=== PATIENT | female | born 1980 | race Caucasian/White ===

== ENCOUNTER 2018-03-10 06:50 | Inpatient (IN) | payer MEDICARE ==
[2018-03-08 14:23] LABS: BASOPHILS 0.3 % (0-2); EOSINOPHILS 4.3 % (0-7); HEMATOCRIT 38.8 % (36.0-48.0); HEMOGLOBIN 12.7 g/dL (12-16); IMMATURE GRANULOCYTES 0.4 % (0-5); LYMPHOCYTES 41.2 % (15-50); MCH 28.2 pg (26.0-34.0); MCHC 32.7 g/dL (31.0-37.0); MCV 86.2 fL (80.0-100.0); MEAN PLATELET VOLUME 9.7 fL (7.4-10.4); MONOCYTES 5.3 % (2-11); NEUTROPHILS 48.5 % (40-80); RDW 13.7 % (11.5-14.5); WBC 6.9 10x3/uL (4.8-10.8)
[2018-03-08 14:30] LABS: PLATELET COUNT 273 10x3/uL (130-400)
[2018-03-08 14:34] LABS: CALC OSMOLALITY 273 mosm/kg (275-300); CALCIUM 8.5 mg/dL (8.5-10.1); CARBON DIOXIDE 24.8 mmol/L (21.0-32.0); CHLORIDE - SERUM 104 mmol/L (98-107); CREATININE - SERUM 0.7 mg/dL (0.6-1.3); GLUCOSE 107 mg/dL (74-106); POTASSIUM - SERUM 3.9 mmol/L (3.5-5.1); SODIUM 138 mmol/L (136-145); UREA NITROGEN 7 mg/dL (7-18); eGFR NON AFRICAN AMERICAN > 90 mL/min (90-120)
[2018-03-10] VITALS (14 sets, daily range): BP systolic 88–146; BP diastolic 53–89; BMI 39.0
[~2018-03-10] VITALS: Ht 160 cm; Wt 100.0 kg
[~2018-03-10 06:50] MED LIST: GLYBURIDE2.5 MG PO; MOTRIN600 MG PO; PERCOCET 5/3251 TA1 PO; PRENATAL COMPLE1 TAB PO
[2018-03-10 07:18] LABS: HCG URINE NEGATIVE (NEGATIVE)
[2018-03-10 15:30] LABS: BASOPHILS 0.1 % (0-2); EOSINOPHILS 0 % (0-7); HEMOGLOBIN 13.2 g/dL (12-16); IMMATURE GRANULOCYTES 0.2 % (0-5); LYMPHOCYTES 5.9 % (15-50); MCH 28.6 pg (26.0-34.0); MCV 86.8 fL (80.0-100.0); MEAN PLATELET VOLUME 9.5 fL (7.4-10.4); MONOCYTES 2.8 % (2-11); PLATELET COUNT 278 10x3/uL (130-400); RBC 4.61 10x6/uL (4.00-5.40); RDW 13.6 % (11.5-14.5); WBC 16.6 10x3/uL (4.8-10.8)
[2018-03-10 15:38] LABS: CALC OSMOLALITY 270 mosm/kg (275-300); CALCIUM 8.4 mg/dL (8.5-10.1); CARBON DIOXIDE 27.2 mmol/L (21.0-32.0); CHLORIDE - SERUM 101 mmol/L (98-107); CREATININE - SERUM 0.7 mg/dL (0.6-1.3); POTASSIUM - SERUM 4.5 mmol/L (3.5-5.1); SODIUM 135 mmol/L (136-145); UREA NITROGEN 8 mg/dL (7-18); eGFR NON AFRICAN AMERICAN > 90 mL/min (90-120)
[2018-03-10 15:39] LABS: GLUCOSE 158 mg/dL (74-106)
[2018-03-11 00:40] VITALS: BP 98/61
[2018-03-11 06:35] LABS: BASOPHILS 0.1 % (0-2); EOSINOPHILS 0.9 % (0-7); HEMATOCRIT 37.3 % (36.0-48.0); HEMOGLOBIN 12.2 g/dL (12-16); IMMATURE GRANULOCYTES 0.3 % (0-5); LYMPHOCYTES 19.3 % (15-50); MCH 28.4 pg (26.0-34.0); MCHC 32.7 g/dL (31.0-37.0); MCV 86.7 fL (80.0-100.0); MEAN PLATELET VOLUME 9.8 fL (7.4-10.4); MONOCYTES 5.3 % (2-11); NEUTROPHILS 74.1 % (40-80); PLATELET COUNT 266 10x3/uL (130-400); RDW 13.7 % (11.5-14.5); WBC 12.8 10x3/uL (4.8-10.8)
[2018-03-11 06:45] LABS: CALC OSMOLALITY 278 mosm/kg (275-300); CALCIUM 8.7 mg/dL (8.5-10.1); CARBON DIOXIDE 25.9 mmol/L (21.0-32.0); CHLORIDE - SERUM 103 mmol/L (98-107); CREATININE - SERUM 0.8 mg/dL (0.6-1.3); GLUCOSE 147 mg/dL (74-106); POTASSIUM - SERUM 3.9 mmol/L (3.5-5.1); SODIUM 139 mmol/L (136-145); UREA NITROGEN 8 mg/dL (7-18); eGFR NON AFRICAN AMERICAN 85 mL/min (90-120)
[2018-03-11 08:44] VITALS: BP 97/56
[2018-03-11 08:57] VITALS: BP 97/56; Ht 160 cm; Wt 100.0 kg
[2018-03-11 12:27] VITALS: BP 99/55
[2018-03-11 17:36] VITALS: BP 111/65
[2018-03-11 19:00] VITALS: BP 117/56
[2018-03-12 00:32] VITALS: BP 108/58
[2018-03-12] MEDS ORDERED: NORCO 7.5/325 T1 TA1 (13:49)
[2018-03-12] MEDS ORDERED: IBUPROFEN800 MG PO (13:50)
--- NOTE | 2018-04-03 14:35 | OP ---
PATIENT NAME: NAHID HURTADO MEDICAL RECORD: [id number] :82 LOCATION:[facility] ADMISSION DATE:03/10/18 SURGEON: HARPREET SARMIENTO MD DATE OF OPERATION: 03/10/2018 PREOPERATIVE DIAGNOSIS: Menorrhagia, refractory to medical therapy. POSTOPERATIVE DIAGNOSIS: Menorrhagia, refractory to medical therapy. PROCEDURES: Total abdominal hysterectomy and bilateral salpingectomy. SURGEON: Harpreet Sarmiento MD ANESTHESIA: General endotracheal. INTRAVENOUS FLUIDS: Per anesthesia record. ESTIMATED BLOOD LOSS: 400 cc. SPECIMENS: Uterus with cervix and bilateral fallopian tubes. COMPLICATIONS: None apparent. FINDINGS: 1. Mildly enlarged uterus with extensive adhesive disease involving bladder and cervix/lower uterine segment. 2. Grossly normal tubes and ovaries bilaterally. DESCRIPTION OF PROCEDURE: The patient was taken to the operating room, where general anesthesia was achieved without difficulty. The patient was then prepped and draped in normal sterile fashion in the dorsal supine position. The vagina was prepped and a Michael catheter had been placed. Following prep and drape of the abdomen, a repeat Pfannenstiel skin incision was made and extended downward to the underlying subcutaneous fat to the level of the fascia. The fascia was then excised in the midline and the fascial incision was extended bilaterally using the Head scissors. Superior and inferior aspects of the fascial incision were then grasped with Arnel clamps times 2, tented upwards, and sharply dissected from the underlying rectus muscle using the Head scissors and the Bovie cautery. Rectus muscles were then bluntly in the midline and the Metzenbaum scissors was used to enter the intraperitoneal space at the superior aspect of the incision. The peritoneal incision was then extended under direct visualization of the bladder. The uterus was then exteriorized and extensive adhesive disease was noted between the bladder and previous scar. At this point, the uterus was grasped with Arnel clamps on the cornua bilaterally. Uterus was then delivered upward through the incision. Round ligaments were then clamped and suture ligated bilaterally using #0 Vicryl suture. A bladder flap was carefully dissected across the broad ligament to the approximately midline portion of the cervix. Careful dissection was performed until the uterine arteries were identified. A defect was then made bilaterally in the posterior broad ligament. Curved Lito clamps were then placed across the proximal fallopian tubes and uteroovarian ligament times 2. These were then cut and suture ligated with #0 Vicryl times 2. Further skeletonization of the uterine arteries was performed as well as careful dissection of the bladder from the lower uterine segment. The uterine arteries were then grasped with curved Lito clamps times 2. These were then cut and OPERATIVE REPORT [id number] NAHID HURTADO suture ligated with #0 Vicryl. Further dissection was performed anteriorly until the bladder was free of the cervix. Straight Lito clamps were placed across the cardinal ligaments. These were then cut and suture ligated with #0 Vicryl suture. The vagina was then entered anteriorly and Nayeli scissors was used to excise the vagina around the cervix. The uterus with cervix was then removed. The vaginal cuff was repaired with #0 Vicryl in an interrupted [id number] fashion with good hemostasis noted. Attention was then turned to the bilateral adnexa, where the fallopian tubes were identified, grasped with Arcadia clamp bilaterally, and delivered upward through the incision. Some skeletonization from the ovary was performed and a curved Lito clamp was placed across the fallopian tube and it was excised from the mesosalpinx using the Metzenbaum scissors. This was performed bilaterally. The pedicle was then free tied with 2-0 Vicryl and then suture ligated with good hemostasis noted. The pelvis was thoroughly irrigated and all surgical sites were found to be hemostatic. FloSeal was placed on the surgical sites. Counts were correct times 2 for needles, sponges, and instruments. The fascia was repaired with #0 loop PDS times 1. The subcutaneous fat was repaired with 1-0 plain gut suture and the skin was repaired with josé manuel. The patient tolerated the procedure well, was transferred to postanesthesia recovery stable without incident. TRANSINT:[id number] Voice Confirmation ID: [id number] DOCUMENT ID: [id number] HARPREET SARMIENTO MD at 1435 CC: [id number] DICTATION DATE: 04/01/18617 SILK PRESSER: 04/01/18 1108 DIS IN 03/12/18 [place] [id number]
--- NOTE | 2018-04-03 14:35 | DS ---
PATIENT:NAHID HURTADO :82 MEDICAL RECORD: [id number] DISCHARGE SUMMARY ADMISSION DATE: 03/10/18 DISCHARGE DATE: 03/12/18 The patient was admitted on 03/10/2018. HOSPITAL COURSE: A 38-year-old longstanding history of menorrhagia and pelvic pain. The patient had been treated in the past with hormonal therapy. Ultrasound was performed revealing an irregular shaped uterus with a myoma. The patient declined endometrial biopsy at that time and risk of undiagnosed cancer and the need for second surgery for staging was explained. The patient voiced understanding and consent and was admitted for total abdominal hysterectomy. PAST MEDICAL HISTORY: Significant for menorrhagia, pelvic pain, and an ASCUS Pap. PAST SURGICAL HISTORY: The patient reported surgical history significant for times 2 and fixation of a lateral ankle injury. ALLERGIES: The patient reported no allergies. MEDICATIONS: Included vitamins, ibuprofen, and Percocet 5. The patient reported a family history of parent with diabetes with hypertension. Sibling with cardiovascular disease, not otherwise specified. SOCIAL HISTORY: Significant for being a current everyday smoker. PHYSICAL EXAMINATION: VITAL SIGNS: Were found to be stable. The patient was afebrile and normotensive. LUNGS: Clear to auscultation. CARDIOVASCULAR: Regular rate and rhythm. ABDOMEN: Soft and nontender. EXTREMITIES: Lower extremities were free of Homans sign, erythema, or swelling. ASSESSMENT AND PLAN: 1. Menorrhagia. 2. Pelvic pain. 3. History of ASCUS Pap. 4. History of times 2. 5. Smoker. Plan at that time for hysterectomy and bilateral salpingectomy. Risks and benefits were explained. The patient voiced understanding and consent. Total abdominal hysterectomy and bilateral salpingectomy was performed. The patient did well overnight on day #0. On a Dilaudid CHEMICAL MAKER with IV Toradol, IV fluids. The patient tolerating clear liquid diet. Michael catheter was in overnight and urine output was found to be adequate. SCDs were on and functioning normally. On the morning of postop day #1, hemoglobin was stable. Creatinine was stable. Vital signs remained stable. Incision was clean, dry, and intact. The patient was advanced to general diet and p.o. pain meds. Ambulation was begun and a Michael catheter was discontinued. The patient continued to improve during the day on postop day #1. On the morning of postop day #2, the patient remained afebrile and normotensive. The patient tolerated general diet and p.o. pain meds. Incision was clean, dry and intact. The DISCHARGE SUMMARY REPORT [id number] NAHID HURTADO patient was discharged home on postop day #2 with instructions to follow up the next week for staple removal. TRANSINT:[id number] Voice Confirmation ID: [id number] DOCUMENT ID: [id number] HUEY MONGE MD at 1435 CC: [id number] DICTATION DATE: 04/01/18621 EVENT OPERATIONS MANAGER: 04/01/18 2303 DIS IN 03/12/18 [id number] [place] [address]
== END 2018-03-12 14:15 | disposition home or self-care (01) | DRG 743 ==
LOC: D.SDCHOLD 06:50 → D.LD 10:00
PROVIDERS: ADMIT Obstetrics & Gynecology
PROC: 0UT94ZZ Resection of Uterus, Percutaneous Endoscopic Approach (ICD-10-PCS; principal; 2018-03-10 07:30)
PROC: 0UT74ZZ Resection of Bilateral Fallopian Tubes, Percutaneous Endoscopic Approach (ICD-10-PCS; 2018-03-10 07:30)
DX: N92.0 Excessive and frequent menstruation with regular cycle (principal); R10.2 Pelvic and perineal pain; F17.200 Nicotine dependence, unspecified, uncomplicated; E28.2 Polycystic ovarian syndrome

== ENCOUNTER 2019-06-07 14:14 | Emergency (ER) | payer MEDICARE ==
[~2019-06-07] VITALS: Ht 160 cm; Wt 100.0 kg
[~2019-06-07 14:14] MED LIST changes: +IBUPROFEN800 MG PO; +NORCO 7.5/325 T1 TA1; +STERAPRED DS 1010 MG PO; +TYLENOL W/CODEI1 TAB PO
[2019-06-07 14:25] VITALS: Ht 160 cm; Wt 100.0 kg
[2019-06-07 14:42] LABS: BASOPHILS 0.3 % (0-2); EOSINOPHILS 4.2 % (0-7); HEMATOCRIT 40.6 % (36.0-48.0); HEMOGLOBIN 13.5 g/dL (12-16); IMMATURE GRANULOCYTES 0.1 % (0-5); LYMPHOCYTES 39.6 % (15-50); MCH 29.7 pg (26.0-34.0); MCHC 33.3 g/dL (31.0-37.0); MCV 89.4 fL (80.0-100.0); MEAN PLATELET VOLUME 9.6 fL (7.4-10.4); MONOCYTES 5.6 % (2-11); NEUTROPHILS 50.2 % (40-80); PLATELET COUNT 292 10x3/uL (130-400); RBC 4.54 10x6/uL (4.00-5.40); RDW 13.5 % (11.5-14.5); WBC 7.6 10x3/uL (4.8-10.8)
[2019-06-07 14:50] LABS: CALC OSMOLALITY 276 mosm/kg (275-300); CALCIUM 8.5 mg/dL (8.5-10.1); CHLORIDE - SERUM 104 mmol/L (98-107); CREATININE - SERUM 0.9 mg/dL (0.6-1.3); GLUCOSE 106 mg/dL (74-106); POTASSIUM - SERUM 3.6 mmol/L (3.5-5.1); SODIUM 139 mmol/L (136-145); UREA NITROGEN 10 mg/dL (7-18); eGFR NON AFRICAN AMERICAN 74 mL/min (90-120)
[2019-06-07 14:55] LABS: APTT 25.1 SECONDS (22.8-39.4); INR 1.09 (0.85-1.17); PROTIME 14.1 SECONDS (11.6-15.0)
[2019-06-07 15:08] LABS: ALBUMIN 3.6 g/dL (3.4-5.0); ALKALINE PHOSPHATASE 64 U/L (30-120); ALT (SGPT) 34 U/L (10-68); CREATINE KINASE 61 UL (21-215); MAGNESIUM - SERUM 1.9 mg/dL (1.8-2.4); PROTEIN - SERUM 7.7 g/dL (6.4-8.2)
[2019-06-07 15:14] LABS: TROPONIN-I < 0.017 ng/mL (0.000-0.060)
[2019-06-07 15:39] LABS: C-REACTIVE PROTEIN 1.1 mg/dL (0.0-0.9)
[2019-06-07] MEDS ORDERED: NAPROSYN500 MG PO (16:57)
[2019-06-07] MEDS ORDERED: CYCLOBENZAPRINE10 MG PO (16:57)
[2019-06-07 17:14] VITALS: BP 122/78
== END 2019-06-07 17:14 | disposition home or self-care (01) ==
LOC: D.ER 14:14
PROVIDERS: Family Medicine
DX: R07.89 Other chest pain (principal)

== ENCOUNTER 2020-09-29 18:36 | Emergency (ER) | payer MEDICARE ==
[~2020-09-29] VITALS: Ht 160 cm; Wt 97.7 kg
[~2020-09-29 18:36] MED LIST changes: +CYCLOBENZAPRINE10 MG PO; +NAPROSYN500 MG PO
[2020-09-29 18:53] VITALS: BP 135/86; Ht 160 cm; Wt 97.7 kg
== END 2020-09-29 20:50 | disposition left against medical advice (07) ==
LOC: D.ER 18:36
DX: Z20.822 Contact with and (suspected) exposure to COVID-19 (principal)